=== PATIENT | female | born 1985 | race American Indian/Alaskan Native ===

== ENCOUNTER 2016-08-17 14:35 | Emergency (ER) | payer SELFPAY | END 2016-08-17 15:28 | disposition left against medical advice (07) | LOC: ED 14:35 | DX: R07.9 Chest pain, unspecified (principal); Z53.21 Procedure and treatment not carried out due to patient leaving prior to being seen by health care provider ==

== ENCOUNTER 2016-08-18 06:18 | Emergency (ER) | payer MEDICAID ==
[2016-08-18 07:24] LABS: Basophils % (Auto) 0.5 % (0.0-1.8); Eosinophils % (Auto) 1.7 % (0.0-4.3); Hematocrit 38.3 % (30.3-42.9); Hemoglobin 12.4 gm/dl (10.1-14.3); Mean Corpuscular HGB Conc 32 % (30-34); Mean Corpuscular Hemoglobin 29 pg (28-32); Mean Corpuscular Volume 90 fl (79-97); Platelet Count 254 K/mm3 (140-440); Red Blood Count 4.28 M/mm3 (3.65-5.03); Red Cell Distribution Width 15.3 % (13.2-15.2); White Blood Count 6.6 K/mm3 (4.5-11.0)
[2016-08-18 07:36] LABS: Anion Gap 17 mmol/L; Blood Urea Nitrogen 9 mg/dL (7-17); Calcium 8.9 mg/dL (8.4-10.2); Carbon Dioxide 26 mmol/L (22-30); Chloride 101.1 mmol/L (98-107); Glucose 92 mg/dL (65-100); Potassium 4.3 mmol/L (3.6-5.0); Sodium 140 mmol/L (137-145)
[2016-08-18 13:46] VITALS: BP 123/72
--- NOTE | 2016-08-18 14:19 | Emergency Department Report ---
HPI - General Chief Complaint: Chest Pain Time Seen by Provider: 08/18/16 14:05 - [facility] HPI: [place] 27 The patient is a 30-year-old female presenting with a chief complaint of chest pain and nasal congestion. The patient states for the past 5 months she has had intermittent chest pain that comes on without specific triggers. The patient states for the past 2 days she has described nasal congestion and sore throat. Patient admits to a cough has been productive of yellow sputum. Patient states for 2 months she has had hot and cold chills in addition to diarrhea. The patient states she has never sought medical attention for the above complaint Location: [see above] Duration: [see above] Quality: "Pain" Severity: Moderate Modifying factors: [see above] Context: [see above] Mode of transportation: [not driving] ED Past Medical Hx - Past Medical History Previous Medical History?: No - Surgical History Past Surgical History?: Yes Additional Surgical History: L ectopic 2014/2015? - Family History Family history: no significant - Social History Smoking Status: Current Every Day Smoker Substance Use Type: Marijuana - Medications Home Medications: Home Medications Medication Instructions Recorded Confirmed Last Taken Type Azithromycin [Zithromax Z-GENESIS] 0 mg PO DAILY #6 tab 08/18/16 Unknown Rx Benzonatate [Tessalon Perles] 100 mg PO Q8HR #30 capsule 08/18/16 Unknown Rx traMADol [Ultram] 50 mg PO Q6HR PRN #14 tablet 08/18/16 Unknown Rx ED Review of Systems ROS: Stated complaint: CHEST PAIN Other details as noted in HPI Comment: All other systems reviewed and negative Constitutional: denies: chills, fever Eyes: denies: eye pain, eye discharge, vision change ENT: congestion. denies: ear pain, throat pain Respiratory: cough Cardiovascular: denies: palpitations Endocrine: no symptoms reported Gastrointestinal: denies: abdominal pain, nausea, diarrhea Genitourinary: denies: urgency, dysuria, discharge Musculoskeletal: myalgia Skin: denies: rash, lesions Neurological: denies: headache, weakness, paresthesias Psychiatric: denies: anxiety, depression Hematological/Lymphatic: denies: easy bleeding, easy bruising Physical Exam - Physical Exam Vital Signs: Vital Signs 08/18/16 08/18/16 08/18/16 06:37 11:00 12:55 Temperature 98.3 F 98.8 F 97.9 F Pulse Rate 64 70 60 Respiratory 18 18 16 Rate Blood Pressure 127/89 124/56 Blood Pressure 123/72 [Left] O2 Sat by Pulse 100 100 100 Oximetry 08/18/16 13:46 Temperature Pulse Rate Respiratory 16 Rate Blood Pressure Blood Pressure [Left] O2 Sat by Pulse 100 Oximetry Physical Exam: GENERAL: The patient is well-developed well-nourished female lying on stretcher using cell phone not appearing to be in acute distress. [] HEENT: Normocephalic. Atraumatic. Extraocular motions are intact. Patient has moist mucous membranes. Oropharynx clear NECK: Supple. No stridor CHEST/LUNGS: Clear to auscultation. There is no respiratory distress noted. HEART/CARDIOVASCULAR: Regular. There is no tachycardia. There is no gallop rub or murmur. ABDOMEN: Abdomen is soft, nontender. Patient has normal bowel sounds. There is no abdominal distention. SKIN: There is no rash. There is no edema. There is no diaphoresis. NEURO: The patient is awake, alert, and oriented. The patient is cooperative. The patient has normal speech MUSCULOSKELETAL: There is no evidence of acute injury. ED Course Vital Signs 08/18/16 08/18/16 08/18/16 06:37 11:00 12:55 Temperature 98.3 F 98.8 F 97.9 F Pulse Rate 64 70 60 Respiratory 18 18 16 Rate Blood Pressure 127/89 124/56 Blood Pressure 123/72 [Left] O2 Sat by Pulse 100 100 100 Oximetry 08/18/16 13:46 Temperature Pulse Rate Respiratory 16 Rate Blood Pressure Blood Pressure [Left] O2 Sat by Pulse 100 Oximetry ED Medical Decision Making - Lab Data Result diagrams: 08/18/16 07:01 08/18/16 07:01 Laboratory Tests 08/18/16 08/18/16 08/18/16 07:01 07:01 09:57 WBC 6.6 RBC 4.28 Hgb 12.4 Hct 38.3 MCV 90 MCH 29 MCHC 32 RDW 15.3 H Plt Count 254 Lymph % (Auto) 17.7 [place] % (Auto) 10.1 H Eos % (Auto) 1.7 Baso % (Auto) 0.5 Lymph # 1.2 [place] # 0.7 Eos # 0.1 Baso # 0.0 Seg Neutrophils % 70.0 Seg Neutrophils # 4.6 Sodium 140 Potassium 4.3 Chloride 101.1 Carbon Dioxide 26 Anion Gap 17 BUN 9 Creatinine 0.6 L Estimated GFR > 60 BUN/Creatinine Ratio 15.00 Glucose 92 Calcium 8.9 Troponin T < 0.010 < 0.010 08/18/16 12:47 WBC RBC Hgb Hct MCV MCH MCHC RDW Plt Count Lymph % (Auto) [place] % (Auto) Eos % (Auto) Baso % (Auto) Lymph # [place] # Eos # Baso # Seg Neutrophils % Seg Neutrophils # Sodium Potassium Chloride Carbon Dioxide Anion Gap BUN Creatinine Estimated GFR BUN/Creatinine Ratio Glucose Calcium Troponin T < 0.010 - EKG Data -: EKG Interpreted by Me EKG shows normal: sinus rhythm Rate: normal - EKG Data When compared to previous EKG there are: previous EKG unavailable Interpretation: nonspecific ST-T wave pura (T-wave inversion in lead V2) - Radiology Data Radiology results: image reviewed (chest x-ray) interpreted by me: Chest x-ray-no focal infiltrates, no pneumothorax. Bilateral nipple piercings - Differential Diagnosis pneumonia, bronchitis, pneumothorax Critical care attestation.: If time is entered above; I have spent that time in minutes in the direct care of this critically ill patient, excluding procedure time. ED Disposition Clinical Impression: URI (upper respiratory infection), Acute bronchitis Disposition: DISCHARGED TO HOME OR SELFCARE Is pt being admited?: No Does the pt Need Aspirin: No Condition: Stable Instructions: Acute Bronchitis (ED) Additional Instructions: Return to the emergency department immediately should you develop worsening symptoms, fever, inability to tolerate food or liquid or any other concerns. Prescriptions: Azithromycin [Zithromax Z-GENESIS] 0 mg PO DAILY #6 tab Benzonatate [Tessalon Perles] 100 mg PO Q8HR #30 capsule traMADol [Ultram] 50 mg PO Q6HR PRN #14 tablet PRN Reason: Pain Referrals: PRIMARY CARE, [Primary Care Provider] - 3-5 Days SHANNON ALTAMIRANO MD [Staff Physician] - 3-5 Days (Dr. Altamirano is a primary physician. Please follow up with him for further evaluation) Time of Disposition: 15:20
--- NOTE | 2016-08-18 15:35 | XRay Report ---
CHEST TWO VIEWS: 08/18/16 06:18:00 CLINICAL: Chest pain and cough. COMPARISON: None FINDINGS: Normal heart and pulmonary vasculature. The lungs are normally expanded and clear.The bones and soft tissues are unremarkable. IMPRESSION: Normal chest.
== END 2016-08-18 15:30 | disposition home or self-care (01) ==
LOC: ED 06:18
DX: J20.9 Acute bronchitis, unspecified (principal); J06.9 Acute upper respiratory infection, unspecified; F17.200 Nicotine dependence, unspecified, uncomplicated; F12.10 Cannabis abuse, uncomplicated
CPT/HCPCS: 36415; 71020; 80048; 84484; 85025; 93005; 93010